=== PATIENT | female | born 1950 | race Native Hawaiian/Other Pacific Islander ===

== ENCOUNTER 2016-10-14 11:59 | Emergency (ER) | payer MEDICARE, OTHER | END 2016-10-14 16:17 | disposition home or self-care (01) | DX: K59.00 Constipation, unspecified (principal); I10 Essential (primary) hypertension ==

== ENCOUNTER 2016-11-06 10:04 | Emergency (ER) | payer MEDICARE, OTHER | END 2016-11-06 12:01 | disposition home or self-care (01) | DX: J06.9 Acute upper respiratory infection, unspecified (principal); I10 Essential (primary) hypertension; E78.00 Pure hypercholesterolemia, unspecified ==

== ENCOUNTER 2017-02-02 14:09 | Emergency (ER) | payer MEDICARE, OTHER ==
--- NOTE | 2017-02-02 14:28 | ED Physician Documentation ---
PD HPI FEMALE - Stated complaint Stated Complaint: FEMALE - Chief complaint Chief Complaint: UTI - History obtained from History obtained from: Patient - History of Present Illness Timing - onset: Last night Timing - details: Gradual onset, Still present, Waxing and waning Associated symptoms: Vaginal discharge (mild), Dysuria, Urinary frequency. No: Fever, Back pain, Pelvic pain, Vaginal pain, Vaginal bleeding, Genital sore/ lesion, Hematuria Contributing factors: No: Exposed to STD Similar symptoms before: Has not had sx before Recently seen: Not recently seen Review of Systems Constitutional: denies: Fever, Chills Throat: denies: Sore throat Respiratory: denies: Dyspnea, Cough GI: denies: Abdominal Pain, Nausea, Vomiting, Diarrhea : reports: Dysuria, Frequency, Discharge. denies: Hematuria, Vaginal bleeding Skin: denies: Rash, Lesions Musculoskeletal: denies: Back pain PD PAST MEDICAL HISTORY - Past Medical History Cardiovascular: Hypertension, High cholesterol Neuro: Headache/migraine - Past Surgical History Past Surgical History: Yes - Present Medications Home Medications: Ambulatory Orders Medication Instructions Recorded Confirmed Atenolol [Tenormin] 25 mg PO DAILY PRN 01/13/13 11/06/16 Simvastatin [Zocor] 10 mg PO QPM 01/13/13 11/06/16 Albuterol Sulfate [Proair Hfa 2 puffs IH QID #1 hfa.aer.ad 11/06/16 Inhaler] Amoxicillin 500 mg PO TID #20 capsule 11/06/16 Benzonatate [Tessalon] 100 mg PO TID PRN #25 capsule 11/06/16 Dexamethasone [Decadron] 4 mg PO DAILY #5 tablet 11/06/16 Prilosec Daily 11/06/16 Fluconazole [Diflucan] 150 mg PO ONCE #1 tablet 02/02/17 Metronidazole [Flagyl] 500 mg PO BID #14 tablet 02/02/17 - Allergies Allergies/Adverse Reactions: Allergies Allergy/AdvReac Type Severity Reaction Status Date / Time codeine [Codeine] Allergy Intermediate Hives Verified 02/02/17 14:17 - Social History Does the pt smoke?: No Smoking Status: Never smoker Does the pt drink ETOH?: No Does the pt have substance abuse?: No - Immunizations Immunizations are current?: Yes - POLST Patient has POLST: No PD ED PE NORMAL - Vitals Vital signs reviewed: Yes - General General: Alert and oriented X 3, No acute distress, Well developed/nourished - HEENT HEENT: Pharynx benign - Neck Neck: Supple, no meningeal sign, No adenopathy - Cardiac Cardiac: RRR, No murmur - Respiratory Respiratory: Clear bilaterally - Abdomen Abdomen: Normal bowel sounds, Soft, Non tender, Non distended - Female Female : 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 Seem like small cysts. Do not appear infected. The vaginal exam shows small amount of milky white discahrge. No Cervicitis and no CMT. ) - Rectal Rectal: Deferred - Back Back: No CVA TTP - Derm Derm: Normal color, Warm and dry, No rash Results - Vitals Vitals: Oxygen O2 Source Room air - Labs Labs: Microbiology 02/02/17 15:14 Wet Prep - Final Vaginal Laboratory Tests 02/02/17 14:21 Urine Color YELLOW Urine Clarity CLEAR Urine pH 5.5 Ur Specific [place] 1.015 Urine Protein NEGATIVE Urine Glucose (UA) NEGATIVE Urine Ketones NEGATIVE Urine Occult Blood NEGATIVE Urine Nitrite NEGATIVE Urine Bilirubin NEGATIVE Urine Urobilinogen 0.2 (NORMAL) Ur Leukocyte Esterase NEGATIVE Ur Microscopic Review NOT INDICATED Urine Culture Comments NOT INDICATED PD MEDICAL DECISION MAKING - ED course Complexity details: reviewed results, considered differential (dysuria and frequency, with slight vaginal discharge by complaint. UA appears normal. There is some vaginal discharge, though not that much and does not appear STD. Will treat as BV since the wet mount, though negative, has high false negatives. She has 2 small cystic bumps on labia that look benign. She would like referral to [facility]IRONMENT[facility] PROGRAMS [facility]NAGER. ), d/w patient Departure - Departure Disposition: Home, Self Care Clinical Impression: Vaginitis Qualifiers: Chronicity: acute Qualified Code(s): N76.0 - Acute vaginitis Condition: Stable Record reviewed to determine appropriate education?: Yes Instructions: ED Vaginosis Bacterial Follow-Up: Noah Peter MD [Provider Admit Priv/Credential] - Prescriptions: Fluconazole [Diflucan] 150 mg PO ONCE #1 tablet Metronidazole [Flagyl] 500 mg PO BID #14 tablet Comments: Your urine test is okay, so not looking like bladder infection. It does look like vaginal infection, which could be yeast so take Diflucan antifungal once and should treat that, but could be bacterial, so metronidazole twice daily for a week as directed. Recheck if not improved over the next few days. The vaginal culture will result in a few days and we will call if the antibiotics need to be changed. Follow up with Gynecology regarding the small labial bumps, but those do look benign, like small cysts. Discharge Date/Time: 02/02/17 16:06
[2017-02-02 14:39] LABS: BILIRUBIN,URINE NEGATIVE (NEGATIVE); PH,URINE 5.5 PH (5.0-7.5)
[2017-02-02 14:42] LABS: UA CHARGE (STRIP ONLY) YES; UR CULTURE IF IND NOT INDICATED
[2017-02-02 16:05] VITALS: BP 128/78
== END 2017-02-02 16:06 | disposition home or self-care (01) ==
LOC: ED 14:09
DX: N76.0 Acute vaginitis (principal); N90.7 Vulvar cyst; I10 Essential (primary) hypertension
CPT/HCPCS: 81001; 81003; 87086; 87210; 87491; 87591; 99283

== ENCOUNTER 2017-02-07 10:59 | Emergency (ER) | payer MEDICARE, OTHER ==
--- NOTE | 2017-02-07 12:08 | ED Physician Documentation ---
History of Present Illness - Stated complaint Stated Complaint: ABD PX/HEADACHE - Chief complaint Chief Complaint: Abd Pain - Additonal information Additional information: hx from pt 66 y/o f seen here recently and dx vaginitis possibly fungal txed with diflucan and possible bactrerial txed with flagyl has abd upset with falgyl so she has stopped that and is now feeling betterthough she still feels weak all over and has a mild LOBO Review of Systems Constitutional: denies: Fever Cardiac: denies: Chest pain / pressure Respiratory: denies: Dyspnea GI: denies: Abdominal Pain Neurologic: reports: Generalized weakness (mild), Headache (mild) Endocrine: denies: Easy bruising / bleeding Immunocompromised: denies: Immunocompromised PD PAST MEDICAL HISTORY - Past Medical History Cardiovascular: Hypertension, High cholesterol Neuro: Headache/migraine - Past Surgical History Past Surgical History: Yes - Present Medications Home Medications: Ambulatory Orders Medication Instructions Recorded Confirmed Atenolol [Tenormin] 25 mg PO DAILY PRN 01/13/13 11/06/16 Simvastatin [Zocor] 10 mg PO QPM 01/13/13 11/06/16 Albuterol Sulfate [Proair Hfa 2 puffs IH QID #1 hfa.aer.ad 11/06/16 Inhaler] Amoxicillin 500 mg PO TID #20 capsule 11/06/16 Benzonatate [Tessalon] 100 mg PO TID PRN #25 capsule 11/06/16 Dexamethasone [Decadron] 4 mg PO DAILY #5 tablet 11/06/16 Prilosec Daily 11/06/16 Fluconazole [Diflucan] 150 mg PO ONCE #1 tablet 02/02/17 Metronidazole [Flagyl] 500 mg PO BID #14 tablet 02/02/17 - Allergies Allergies/Adverse Reactions: Allergies Allergy/AdvReac Type Severity Reaction Status Date / Time codeine [Codeine] Allergy Intermediate Hives Verified 02/02/17 14:17 - Social History Does the pt smoke?: No Smoking Status: Never smoker Does the pt drink ETOH?: No Does the pt have substance abuse?: No - Immunizations Immunizations are current?: Yes - POLST Patient has POLST: No PD ED PE NORMAL - Vitals Vital signs reviewed: Yes - General General: Alert and oriented X 3 - HEENT HEENT: PERRL, Other (globes soft no TA TTP) - Neck Neck: Supple, no meningeal sign - Cardiac Cardiac: RRR - Respiratory Respiratory: No respiratory distress, Clear bilaterally - Abdomen Abdomen: Soft, Non tender - Neuro Neuro: Alert and oriented X 3, No motor deficit Results - Vitals Vitals: Vital Signs - 24 hr 02/07/17 11:07 Temperature 36.6 C Heart Rate 62 Respiratory 14 Rate Blood Pressure 121/71 O2 Saturation 99 Oxygen O2 Source Room air - Labs Labs: Laboratory Tests 02/07/17 02/07/17 12:00 12:00 POC Whole Bld Glucose 92 Urine Color YELLOW Urine Clarity CLEAR Urine pH 6.0 Ur Specific [place] 1.015 Urine Protein NEGATIVE Urine Glucose (UA) NEGATIVE Urine Ketones NEGATIVE Urine Occult Blood TRACE-INTA Urine Nitrite NEGATIVE Urine Bilirubin NEGATIVE Urine Urobilinogen 0.2 (NORMAL) Ur Leukocyte Esterase NEGATIVE Ur Microscopic Review NOT INDICATED Urine Culture Comments NOT INDICATED Departure - Departure Disposition: 01 Home, Self Care Clinical Impression: Adverse effects of medication Condition: Good Comments: Your vital signs, exam, blood sugar and urine test are all fine. The vaginal cultures from your first visit were negative, so you can stop the antibiotics all together You should start to feel better soon If not better by next week please follow up with your PMD Return to the ER sooner if worse
[2017-02-07 12:32] LABS: BILIRUBIN,URINE NEGATIVE (NEGATIVE)
[2017-02-07 12:33] LABS: UA CHARGE (STRIP ONLY) YES; UR CULTURE IF IND NOT INDICATED
[2017-02-07 12:53] VITALS: BP 124/67
== END 2017-02-07 12:53 | disposition home or self-care (01) ==
LOC: ED 10:59
DX: R10.9 Unspecified abdominal pain (principal); T37.3X5A Adverse effect of other antiprotozoal drugs, initial encounter; R51 Headache; R53.1 Weakness; I10 Essential (primary) hypertension
CPT/HCPCS: 81001; 81003; 87086; 99283

== ENCOUNTER 2017-04-22 21:57 | Emergency (ER) | payer MEDICARE, OTHER ==
[2017-04-22 22:11] VITALS: BP 140/87
--- NOTE | 2017-04-22 22:18 | ED Physician Documentation ---
PD HPI ABD PAIN - Stated complaint Stated Complaint: LT SIDE BURNING PX - Chief complaint Chief Complaint: Abd Pain - History obtained from History obtained from: Patient - History of Present Illness Timing - onset: Today (this morning) Timing - details: Gradual onset Pain level now: 9 Quality: Other (burning) Location: LLQ Radiation: Other (radiates from left flank to umbilicus) Improved by: Other (no ameliorating factors) Worsened by: Other (no exacerbating factors) Similar symptoms before: Has not had sx before - Additional information Additional information: c/o burning pain left abdomen to umbilicus. fell early this morning but does not recall specifically injuring her abdomen Review of Systems Cardiac: reports: Reviewed and negative Respiratory: reports: Reviewed and negative GI: reports: Abdominal Pain. denies: Nausea, Vomiting Skin: denies: Rash Musculoskeletal: denies: Back pain PD PAST MEDICAL HISTORY - Past Medical History Past Medical History: Yes Cardiovascular: Hypertension, High cholesterol Neuro: Headache/migraine - Past Surgical History Past Surgical History: Yes - Present Medications Home Medications: Ambulatory Orders Medication Instructions Recorded Confirmed Atenolol [Tenormin] 25 mg PO DAILY PRN 01/13/13 04/22/17 Simvastatin [Zocor] 10 mg PO QPM 01/13/13 04/22/17 - Allergies Allergies/Adverse Reactions: Allergies Allergy/AdvReac Type Severity Reaction Status Date / Time codeine [Codeine] Allergy Intermediate Hives Verified 04/22/17 22:11 - Social History Does the pt smoke?: No Smoking Status: Never smoker Does the pt drink ETOH?: No Does the pt have substance abuse?: No - Immunizations Immunizations are current?: Yes - POLST Patient has POLST: No PD ED PE NORMAL - Vitals Vital signs reviewed: Yes - General General: Alert and oriented X 3, No acute distress, Well developed/nourished - Cardiac Cardiac: RRR, No murmur - Respiratory Respiratory: No respiratory distress, Clear bilaterally - Abdomen Abdomen: Normal bowel sounds, Soft, Non tender, Non distended - Derm Derm: Normal color, Warm and dry, No rash Results - Vitals Vitals: Vital Signs - 24 hr 04/22/17 22:08 Temperature 36.4 C L Heart Rate 70 Respiratory 16 Rate Blood Pressure 140/87 H O2 Saturation 98 Oxygen O2 Source Room air PD MEDICAL DECISION MAKING - ED course Complexity details: considered differential, d/w patient ED course: Patient's abdominal exam is benign/unremarkable. There is no abdominal tenderness to deep palpation in any quadrant or periumbilicus. No UTI symptoms. Exam does not suggest an acute/emergent process that would indicate/benefit from emergent testing (such as traumatic injury, diverticulitis, UTI). Possibility of shingles discussed, and I encouraged patient to return or see PMD if she develops a rash in the area of discomfort, and to return to ED if worse in any way. Departure - Departure Disposition: 01 Home, Self Care Clinical Impression: Paresthesia of skin Condition: Good Instructions: ED Paraesthesias Discharge Date/Time: 04/22/17 22:57
[2017-04-22] MEDS ORDERED: LIDOCAINE PATCH 5% TOP STA (22:42)
[2017-04-22] MEDS ORDERED: LIDOCAINE PATCH 5% TOP ONE (22:50)
== END 2017-04-22 22:57 | disposition home or self-care (01) ==
LOC: ED 21:57
DX: R20.9 Unspecified disturbances of skin sensation (principal); I10 Essential (primary) hypertension; E78.00 Pure hypercholesterolemia, unspecified
CPT/HCPCS: 99283; A9270

== ENCOUNTER 2017-06-02 13:39 | Emergency (ER) | payer MEDICARE, OTHER ==
[2017-06-02 14:01] VITALS: BP 109/76
--- NOTE | 2017-06-02 15:12 | ED Physician Documentation ---
PD HPI BACK INJURY - Stated complaint Stated Complaint: NECK IRRITATION PD PAST MEDICAL HISTORY - Past Medical History Cardiovascular: Hypertension, High cholesterol Neuro: Headache/migraine - Past Surgical History Past Surgical History: Yes - Present Medications Home Medications: Ambulatory Orders Medication Instructions Recorded Confirmed Atenolol [Tenormin] 25 mg PO DAILY PRN 01/13/13 06/02/17 Simvastatin [Zocor] 10 mg PO QPM 01/13/13 06/02/17 - Allergies Allergies/Adverse Reactions: Allergies Allergy/AdvReac Type Severity Reaction Status Date / Time codeine [Codeine] Allergy Intermediate Hives Verified 06/02/17 14:28 - Social History Does the pt smoke?: No Smoking Status: Never smoker Does the pt drink ETOH?: No Does the pt have substance abuse?: No - Immunizations Immunizations are current?: Yes - POLST Patient has POLST: No Results - Vitals Vitals: Vital Signs - 24 hr 06/02/17 13:55 Temperature 36.7 C Heart Rate 57 L Respiratory 15 Rate Blood Pressure 109/76 O2 Saturation 99 Oxygen O2 Source Room air
--- NOTE | 2017-06-02 15:12 | ED Physician Documentation ---
PD HPI SKIN - Stated complaint Stated Complaint: NECK IRRITATION - Chief complaint Chief Complaint: Wound - History obtained from History obtained from: Patient - History of Present Illness Timing - onset: How many days ago (few) Timing - duration: Days (few) Timing - details: Abrupt onset Location: Neck (noted it when put lotion on her neck.) Quality / character: Burning. No: Crusted, Draining Associated symptoms: No: Fever, Myalgias Contributing factors: Other (no new jewelry, lotions, meds.). No: Insect bite / sting, Recent illness Similar symptoms before: Has not had sx before Recently seen: Not recently seen Review of Systems Constitutional: denies: Fever, Chills Nose: denies: Rhinorrhea / runny nose, Congestion Throat: denies: Sore throat Respiratory: denies: Cough PD PAST MEDICAL HISTORY - Past Medical History Cardiovascular: Hypertension, High cholesterol Neuro: Headache/migraine - Past Surgical History Past Surgical History: Yes - Present Medications Home Medications: Ambulatory Orders Medication Instructions Recorded Confirmed Atenolol [Tenormin] 25 mg PO DAILY PRN 01/13/13 06/02/17 Simvastatin [Zocor] 10 mg PO QPM 01/13/13 06/02/17 Clotrimazole/Betamethasone Dip 1 applic TP TID #15 cream..g. 06/02/17 [Lotrisone Cream] Mupirocin 1 applic TP TID #15 oint...g. 06/02/17 - Allergies Allergies/Adverse Reactions: Allergies Allergy/AdvReac Type Severity Reaction Status Date / Time codeine [Codeine] Allergy Intermediate Hives Verified 06/02/17 14:28 - Social History Does the pt smoke?: No Smoking Status: Never smoker Does the pt drink ETOH?: No Does the pt have substance abuse?: No - Immunizations Immunizations are current?: Yes - POLST Patient has POLST: No PD ED PE NORMAL - Vitals Vital signs reviewed: Yes - General General: Alert and oriented X 3, No acute distress, Well developed/nourished - Neck Neck: Supple, no meningeal sign, No adenopathy - Derm Derm: Normal color, Warm and dry, Other (right anterior neck with rounded patch of scaly raised skin with demarcated edge about 1 - 1 1/2 cm size. No redness around. Upper portion of it with faint yellow crusting but not purulent. No erosiveness noted. No induration under it. ) Results - Vitals Vitals: Oxygen O2 Source Room air PD MEDICAL DECISION MAKING - ED course Complexity details: considered differential (small rounded patch with hyperkeratosis, but also slight yellow crusting. No erosiveness. Looks like maybe tinea patch but then possible infection to it as well. ), d/w patient Departure - Departure Disposition: 01 Home, Self Care Clinical Impression: Rash of neck Condition: Stable Record reviewed to determine appropriate education?: Yes Follow-Up: [facility] [Provider Group] Prescriptions: Clotrimazole/Betamethasone Dip [Lotrisone Cream] 1 applic TP TID #15 cream..g. Mupirocin 1 applic TP TID #15 oint...g. Comments: There are several things that can look like this with the thickening of the skin and some crusting. The does appear like some infection to it and so use the mupirocin antibiotic ointment 3 times daily after cleaning with soap and water. However also apply Lotrisone cream to the area 2-3 times a day first which includes an antifungal and an anti-inflammatory. This covers the basic infection and irritation type causes. If it has not gotten better whether 5-6 days, then follow-up with your primary care or dermatology for other treatment options. Discharge Date/Time: 06/02/17 16:00
== END 2017-06-02 16:00 | disposition home or self-care (01) ==
LOC: ED 13:39
DX: R21 Rash and other nonspecific skin eruption (principal); I10 Essential (primary) hypertension; E78.00 Pure hypercholesterolemia, unspecified
CPT/HCPCS: 99282; 99283

== ENCOUNTER 2017-10-22 11:51 | Emergency (ER) | payer MEDICARE, OTHER ==
[2017-10-22 12:16] LABS: BILIRUBIN,URINE NEGATIVE (NEGATIVE); GLUCOSE, URINE (UA) NEGATIVE (NEGATIVE); KETONES,URINE (UA) NEGATIVE (NEGATIVE); LEUKOCYTE ESTERASE, URINE NEGATIVE (NEGATIVE); NITRITE,URINE NEGATIVE (NEGATIVE); OCCULT BLOOD,URINE NEGATIVE (NEGATIVE); PROTEIN,URINE NEGATIVE (NEGATIVE); UROBILINOGEN,URINE 0.2 (NORMAL) E.U./dL (NORMAL)
[2017-10-22 12:18] LABS: CLARITY,URINE CLEAR (CLEAR)
[2017-10-22 12:27] LABS: BASOPHILS # (AUTO) 0.1 10^3/uL (0.0-0.1); BASOPHILS % (AUTO) 2.1 %; EOSINOPHILS # (AUTO) 0.1 10^3/uL (0.0-0.7); HGB - HEMOGLOBIN 13.4 g/dL (12.0-16.0); LYMPHOCYTES # (AUTO) 1.9 10^3/uL (1.5-3.5); LYMPHOCYTES % (AUTO) 40.6 %; MEAN CORPUSCULAR HEMOGLOBIN 28.6 pg (27.0-31.0); MEAN CORPUSCULAR HGB CONC 33.1 g/dL (32.0-36.0); MEAN CORPUSCULAR VOLUME 86.3 fL (81.0-99.0); MEAN PLATELET VOLUME 7.5 fL (7.9-10.8); MONOCYTES # (AUTO) 0.4 10^3/uL (0.0-1.0); MONOCYTES % (AUTO) 9.4 %; NEUTROPHILS # (AUTO) 2.1 10^3/uL (1.5-6.6); NEUTROPHILS % (AUTO) 44.9 %; PLT - PLATELET COUNT 318 10^3/uL (130-450); RED CELL DISTRIBUTION WIDTH 13.6 % (12.0-15.0); WHITE BLOOD COUNT 4.7 x10^3/uL (4.8-10.8)
[2017-10-22 13:02] LABS: ALBUMIN 4.2 g/dL (3.2-5.5); ALBUMIN/GLOBULIN RATIO 1.2 (1.0-2.2); BILIRUBIN,TOTAL 0.8 mg/dL (0.2-1.0); CALCIUM 9.5 mg/dL (8.5-10.3); CREATININE 0.8 mg/dL (0.4-1.0); TOTAL PROTEIN 7.7 g/dL (6.7-8.2)
--- NOTE | 2017-10-22 14:36 | ED Physician Documentation ---
History of Present Illness - Stated complaint Stated Complaint: CONSTIPATION X 3 DAYS - Chief complaint Chief Complaint: Abd Pain - Additonal information Additional information: hx from pt 67 female no prior abd surgeries 4 days of illness - no fever, nausea, poor appetite, right sided abd pain and now no BM denies dysuria Review of Systems Constitutional: denies: Fever, Chills Cardiac: denies: Chest pain / pressure Respiratory: denies: Dyspnea GI: reports: Abdominal Pain, Nausea, Constipation (no BM) : denies: Dysuria Musculoskeletal: denies: Neck pain, Back pain Endocrine: denies: Easy bruising / bleeding Immunocompromised: denies: Immunocompromised PD PAST MEDICAL HISTORY - Past Medical History Cardiovascular: Hypertension, High cholesterol Neuro: Headache/migraine - Past Surgical History Past Surgical History: Yes - Present Medications Home Medications: Ambulatory Orders Medication Instructions Recorded Confirmed Atenolol [Tenormin] 12.5 mg PO DAILY PRN 01/13/13 07/05/17 Simvastatin [Zocor] 20 mg PO QPM 01/13/13 07/05/17 Magnesium Citrate 295 ml PO ONCE #1 bottle 10/22/17 - Allergies Allergies/Adverse Reactions: Allergies Allergy/AdvReac Type Severity Reaction Status Date / Time codeine [Codeine] Allergy Intermediate Hives Verified 10/22/17 11:56 - Social History Does the pt smoke?: No Smoking Status: Never smoker Does the pt drink ETOH?: No Does the pt have substance abuse?: No - Immunizations Immunizations are current?: Yes - POLST Patient has POLST: No PD ED PE NORMAL - Vitals Vital signs reviewed: Yes - General General: Alert and oriented X 3 - HEENT HEENT: PERRL - Neck Neck: Supple, no meningeal sign - Cardiac Cardiac: RRR - Respiratory Respiratory: No respiratory distress, Clear bilaterally - Abdomen Abdomen: Soft, Other (TTP right abd non focal no peritineal sx) - Rectal Rectal: Other (no mass, no stool in valult, small brown mucous was occult blood neg QC passed) - Derm Derm: Normal color - Neuro Neuro: Alert and oriented X 3 Results - Vitals Vitals: Vital Signs - 24 hr 10/22/17 11:54 Temperature 36.3 C L Heart Rate 64 Respiratory 16 Rate Blood Pressure 127/93 H O2 Saturation 98 Oxygen O2 Source Room air - Labs Labs: Laboratory Tests 10/22/17 10/22/17 10/22/17 12:05 12:13 12:13 WBC 4.7 L RBC 4.70 Hgb 13.4 Hct 40.5 MCV 86.3 MCH 28.6 MCHC 33.1 RDW 13.6 Plt Count 318 MPV 7.5 L Neut # 2.1 Lymph # 1.9 [place] # 0.4 Eos # 0.1 Baso # 0.1 Absolute Nucleated RBC 0.00 Nucleated RBC % 0.1 Sodium 138 Potassium 3.7 Chloride 104 Carbon Dioxide 26 Anion Gap 8.0 BUN 14 Creatinine 0.8 Estimated GFR (MDRD) 71 L Glucose 99 Calcium 9.5 Total Bilirubin 0.8 AST 33 ALT 32 Alkaline Phosphatase 64 Total Protein 7.7 Albumin 4.2 Globulin 3.5 Albumin/Globulin Ratio 1.2 Lipase 48 Urine Color YELLOW Urine Clarity CLEAR Urine pH 6.0 Ur Specific [place] 1.020 Urine Protein NEGATIVE Urine Glucose (UA) NEGATIVE Urine Ketones NEGATIVE Urine Occult Blood NEGATIVE Urine Nitrite NEGATIVE Urine Bilirubin NEGATIVE Urine Urobilinogen 0.2 (NORMAL) Ur Leukocyte Esterase NEGATIVE Ur Microscopic Review NOT INDICATED Urine Culture Comments NOT INDICATED - Rads (name of study) CT AP Radiology: See rad report (no acute) Departure - Departure Disposition: Home, Self Care Clinical Impression: Abdominal pain Qualifiers: Abdominal location: unspecified location Qualified Code(s): R10.9 - Unspecified abdominal pain Condition: Good Instructions: ED Abdominal Pain Unkn Cause Prescriptions: Magnesium Citrate 295 ml PO ONCE #1 bottle Comments: Your labs, urine and CT scan were all fine. I am not sure what is causing the discomfort, but it does not seem you need surgery or antibiotics or admission to the hospital I think it is OK for you to go home I have prescribe mag citrate to help clear out your bowels - drink half the bottle when you get home and the other half in 12 hr If you get worse in any way, please see your PMD or come back to the ER - sometimes abdominal problems can be difficult to figure out at first but as symptoms progress over time repeat testing shows a diagnosis not initially apparent
--- NOTE | 2017-10-22 15:11 | CT Report ---
EXAM: CT ABDOMEN AND PELVIS EXAM DATE: 10/22/2017 02:51 PM. CLINICAL HISTORY: Right lower abdominal pain. COMPARISONS: 10/14/2016. TECHNIQUE: Routine helical CT imaging was performed through the abdomen and pelvis. IV contrast: No. Enteric contrast: No. Reconstructions: Coronal and sagittal. In accordance with CT protocol optimization, one or more of the following dose reduction techniques w ere utilized for this exam: automated exposure control, adjustment of mA and/or KV based on patient s ize, or use of iterative reconstructive technique. FINDINGS: Lung Bases: Mild linear atelectasis or scarring in the anterior basal left lower lobe and lateral bas al right lower lobe. Liver: Unremarkable. Gallbladder/Bile Ducts: Unremarkable. Spleen: Unremarkable. Pancreas: Unremarkable. Adrenal Glands: Normal. Kidneys: Unremarkable. No hydronephrosis or urolithiasis. Peritoneal Cavity/Bowel: Unopacified stomach and small bowel are nondistended. Appendix is normal. Th ere is a small amount of formed stool in the colon. There is no pericolonic fat stranding. No lymphad enopathy, ascites, or pneumoperitoneum. Pelvic Organs: Bladder, uterus, and adnexa are unremarkable. Vasculature: Mild aortoiliac atherosclerotic calcification without abnormal dilation. Bones: Chronic mild anterior superior wedge compression deformity of L1 vertebral body, as before. Other: Abdominal wall is unremarkable. IMPRESSION: Negative noncontrast CT abdomen and pelvis without findings to explain right-sided pain. [facility] Referring Provider Line: [phone] SITE ID: [id number]
[2017-10-22 15:27] VITALS: BP 107/70
== END 2017-10-22 15:33 | disposition home or self-care (01) ==
LOC: ED 11:51
DX: R10.30 Lower abdominal pain, unspecified (principal); I10 Essential (primary) hypertension; E78.00 Pure hypercholesterolemia, unspecified
CPT/HCPCS: 36415; 74176; 80053; 81001; 81003; 83690; 85025; 87086; 99283

== ENCOUNTER 2018-02-09 23:36 | Emergency (ER) | payer MEDICARE, OTHER ==
[2018-02-09 23:48] VITALS: BP 128/91
--- NOTE | 2018-02-10 03:15 | ED Physician Documentation ---
PD HPI OPHTHO - Stated complaint Stated Complaint: RHIANNA EYE REDNESS - Chief complaint Chief Complaint: Heent - History obtained from History obtained from: Patient - History of Present Illness Timing - onset: How many weeks ago (2) Timing - duration: Weeks Timing - details: Gradual onset Location: Both Quality / character: Itching Associated symptoms: Redness, Swelling Similar symptoms before: Has not had sx before Recently seen: Other (patient says she recently saw her eye doctor (per patient), and was told her eyes are fine (perpstient) but that the doctor had no advice regarding the symptoms and rash surrounding the eyes because they felt it wasnt within their specialty) - Additional information Additional information: c/o two weeks of bilateral periorbital (mostly supraorbital) redness with pruritis and mild swelling. no injury, denies pain, has not used any new makeup nor applied new lotions or other products to the area (except for artificial tears applied yesterday, but symptoms have been going on for two weeks) Review of Systems Constitutional: denies: Fever Eyes: denies: Decreased vision, Discharge, Irritation Skin: reports: Rash (bilateral periorbital) PD PAST MEDICAL HISTORY - Past Medical History Cardiovascular: Hypertension, High cholesterol - Past Surgical History Past Surgical History: Yes - Present Medications Home Medications: Ambulatory Orders Medication Instructions Recorded Confirmed Atenolol [Tenormin] 12.5 mg PO DAILY PRN 01/13/13 07/05/17 Simvastatin [Zocor] 20 mg PO QPM 01/13/13 07/05/17 Magnesium Citrate 295 ml PO ONCE #1 bottle 10/22/17 Desonide 1 film TP BID #1 cream..g. 02/10/18 - Allergies Allergies/Adverse Reactions: Allergies Allergy/AdvReac Type Severity Reaction Status Date / Time codeine [Codeine] Allergy Intermediate Hives Verified 02/09/18 23:48 diphenhydramine Allergy Respiratory Verified 02/09/18 23:48 [From Benadryl] - Social History Does the pt smoke?: No Smoking Status: Never smoker Does the pt drink ETOH?: No Does the pt have substance abuse?: No - Immunizations Immunizations are current?: Yes - POLST Patient has POLST: No PD ED PE NORMAL - Vitals Vital signs reviewed: Yes - General General: Alert and oriented X 3, No acute distress, Well developed/nourished - HEENT HEENT: PERRL, EOMI PD ED PE EXPANDED - Eyes Eyes: Eyelid swelling, Eyelid erythema, Nl conjunctiva/sclera - Derm Derm: Rash (scaly erythematous rash with areas of flaking and mild swelling, predominantly on bilateral supraorbits, particularly on eyelids, with extension to lateral sides of nasal bridge and bilateral medial eyebrows, and trace on lower lids and infraorbits) Results - Vitals Vitals: Oxygen O2 Source Room air PD MEDICAL DECISION MAKING - ED course Complexity details: considered differential, d/w patient - Sepsis Event Vital Signs: Oxygen O2 Source Room air Departure - Departure Disposition: 01 Home, Self Care Clinical Impression: Dermatitis Condition: Good Instructions: ED Dermatitis Non Specific Rash Prescriptions: Desonide 1 film TP BID #1 cream..g. Comments: Follow up with your primary care provider; call today to arrange for next available appointment. Apply a thin film of the prescribed cream to the affected area twice per day for one week. Discharge Date/Time: 02/10/18 04:58
[2018-02-10] MEDS ORDERED: predniSONE 20 MG TABLET PO STA (04:41)
== END 2018-02-10 04:58 | disposition home or self-care (01) ==
LOC: ED 23:36
DX: L30.9 Dermatitis, unspecified (principal); I10 Essential (primary) hypertension; E78.00 Pure hypercholesterolemia, unspecified
CPT/HCPCS: 99283; J7512

== ENCOUNTER 2018-10-04 21:03 | Emergency (ER) | payer MEDICARE, OTHER ==
[2018-10-04] MEDS ORDERED: IBUPROFEN 800 MG TABLET PO STA (21:31)
--- NOTE | 2018-10-04 21:34 | ED Physician Documentation ---
PD HPI URI - Stated complaint Stated Complaint: COUGH - Chief complaint Chief Complaint: Resp - History obtained from History obtained from: Patient - History of Present Illness Timing - onset: How many days ago (6) Timing details: Still present Associated symptoms: Sore throat, Productive cough - Additional information Additional information: The patient is a 68-year-old female who resents with cough of 6 days duration. Cough is productive of sputum. She reports chest discomfort with coughing. She denies dyspnea. She complains of generalized myalgias, slight headache, and sore throat. She denies fever, abdominal pain, nausea or vomiting. Review of Systems Constitutional: reports: Myalgias. denies: Fever Eyes: denies: Irritation Ears: denies: Ear pain Nose: reports: Congestion Throat: reports: Sore throat Cardiac: reports: Chest pain / pressure (with coughing) Respiratory: reports: Cough. denies: Dyspnea GI: denies: Abdominal Pain, Nausea, Vomiting : denies: Dysuria Skin: denies: Rash Musculoskeletal: denies: Extremity swelling Neurologic: reports: Headache (slight). denies: Focal weakness, Numbness PD PAST MEDICAL HISTORY - Past Medical History Past Medical History: Yes Cardiovascular: Hypertension, High cholesterol Endocrine/Autoimmune: None - Past Surgical History Past Surgical History: Yes - Present Medications Home Medications: Ambulatory Orders Medication Instructions Recorded Confirmed Atenolol [Tenormin] 12.5 mg PO DAILY PRN 01/13/13 07/05/17 Simvastatin [Zocor] 20 mg PO QPM 01/13/13 07/05/17 Benzonatate [Tessalon Perle] 100 - 200 mg PO TID PRN #30 capsule 10/04/18 - Allergies Allergies/Adverse Reactions: Allergies Allergy/AdvReac Type Severity Reaction Status Date / Time codeine [Codeine] Allergy Intermediate Hives Verified 10/04/18 21:16 diphenhydramine Allergy Respiratory Verified 10/04/18 21:16 [From Benadryl] - Social History Does the pt smoke?: No Smoking Status: Never smoker Does the pt drink ETOH?: No Does the pt have substance abuse?: No - Immunizations Immunizations are current?: Yes - POLST Patient has POLST: No PD ED PE NORMAL - Vitals Vital signs reviewed: Yes (normal) - General General: Alert and oriented X 3, Well developed/nourished - HEENT HEENT: Atraumatic, Ears normal, Pharynx benign - Neck Neck: Supple, no meningeal sign, No adenopathy, No JVD - Cardiac Cardiac: RRR, No murmur - Respiratory Respiratory: Clear bilaterally - Abdomen Abdomen: Soft, Non tender - Back Back: No CVA TTP - Derm Derm: No rash - Extremities Extremities: No edema, No calf tenderness / cord - Neuro Neuro: Alert and oriented X 3, No motor deficit, Normal speech Results - Vitals Vitals: Vital Signs - 24 hr 10/04/18 10/04/18 21:11 22:08 Temperature 36.7 C 36.3 C L Heart Rate 65 67 Respiratory 15 20 Rate Blood Pressure 129/79 140/95 H O2 Saturation 98 97 Oxygen O2 Source Room air - Labs Labs: Laboratory Tests 10/04/18 21:44 Influenza A (Rapid) Negative Influenza B (Rapid) Negative PD MEDICAL DECISION MAKING - ED course Complexity details: reviewed results, re-evaluated patient, considered differential, d/w patient ED course: The patient's presentation is most consistent with viral upper respiratory infection. Her clinical presentation does not suggest meningitis, pneumonitis, otitis media, or acute pharyngitis. Influenza swab is negative. Treatment in the emergency department included Ibuprophen 800 mg orally. I discussed with her the expected course of illness, symptomatic treatment and outpatient follow-up, as well as potentially worrisome signs or symptoms that should prompt reevaluation in the emergency department. Departure - Departure Disposition: 01 Home, Self Care Clinical Impression: Viral upper respiratory infection Condition: Stable Instructions: ED Upper Resp Infec No Abx Tx Follow-Up: Kaylin Nicolas MD [Physician No Access] - Prescriptions: Benzonatate [Tessalon Perle] 100 - 200 mg PO TID PRN #30 capsule PRN Reason: Cough Comments: Your symptoms are most consistent with a viral upper respiratory infection. Antibiotics are not clinically indicated for this type of viral infection. Treatment should be geared toward managing symptoms: Drink plenty of fluids. Use Tylenol or ibuprofen as needed for fever or discomfort. Wash your hands frequently, and cover your cough. Follow up with your primary physician, or return to the emergency department, if not improving within 1-2 weeks. Return to the emergency department if you develop increasing difficulty breathing, or otherwise worsening symptoms. Discharge Date/Time: 10/04/18 22:11
[2018-10-04] MEDS ORDERED: BENZONATATE 100 MG CAPSULE PO STA (22:05)
[2018-10-04 22:08] VITALS: BP 140/95
== END 2018-10-04 22:11 | disposition home or self-care (01) ==
LOC: ED 21:03
DX: J06.9 Acute upper respiratory infection, unspecified (principal); B34.9 Viral infection, unspecified; I10 Essential (primary) hypertension
CPT/HCPCS: 87275; 87276; 99283; A9270

== ENCOUNTER 2018-10-27 13:27 | Emergency (ER) | payer MEDICARE, OTHER ==
[2018-10-27 13:35] VITALS: BP 117/76
--- NOTE | 2018-10-27 14:21 | ED Physician Documentation ---
PD HPI SKIN - Stated complaint Stated Complaint: RASH - Chief complaint Chief Complaint: Wound - History obtained from History obtained from: Patient - History of Present Illness Timing - onset: Yesterday Timing - details: Abrupt onset (she got her hair dyed yesterday and started with itchy, bumpy rash on back of neck sooner after in the evening. Not present on frontal hairline. No general rash.), Still present Location: Neck. No: Scalp, Face Quality / character: Itchy, Burning Associated symptoms: No: Fever, Myalgias Contributing factors: Other (had hair dyed yesterday and rash started soon after) Recently seen: Not recently seen Review of Systems Constitutional: denies: Fever, Chills Nose: denies: Rhinorrhea / runny nose, Congestion Throat: denies: Sore throat Respiratory: denies: Dyspnea, Cough, Wheezing GI: denies: Nausea, Vomiting, Diarrhea PD PAST MEDICAL HISTORY - Past Medical History Past Medical History: Yes Cardiovascular: Hypertension, High cholesterol Endocrine/Autoimmune: None - Past Surgical History Past Surgical History: Yes - Present Medications Home Medications: Ambulatory Orders Medication Instructions Recorded Confirmed Atenolol [Tenormin] 12.5 mg PO DAILY PRN 01/13/13 07/05/17 Simvastatin [Zocor] 20 mg PO QPM 01/13/13 07/05/17 Betamethasone Valerate 1 applic TP TID PRN #15 cream..g. 10/27/18 Dexamethasone [Decadron] 4 mg PO DAILY #5 tablet 10/27/18 - Allergies Allergies/Adverse Reactions: Allergies Allergy/AdvReac Type Severity Reaction Status Date / Time codeine [Codeine] Allergy Intermediate Hives Verified 10/27/18 14:22 diphenhydramine Allergy Respiratory Verified 10/27/18 14:22 [From Benadryl] - Social History Does the pt smoke?: No Smoking Status: Never smoker Does the pt drink ETOH?: No Does the pt have substance abuse?: No - Immunizations Immunizations are current?: Yes - POLST Patient has POLST: No PD ED PE NORMAL - Vitals Vital signs reviewed: Yes - General General: Alert and oriented X 3, No acute distress, Well developed/nourished - HEENT HEENT: Ears normal, Pharynx benign - Neck Neck: Supple, no meningeal sign, No adenopathy, Other (back of neck with multiple bumpy lesions that are not pustules nor vesicles. Is on both sides and is just on upper neck around hair edge. No rash on face, around ears nor in main scalp. ) - Cardiac Cardiac: RRR, No murmur - Respiratory Respiratory: Clear bilaterally - Derm Derm: Normal color, Warm and dry Results - Vitals Vitals: Oxygen O2 Source Room air PD MEDICAL DECISION MAKING - ED course Complexity details: considered differential (bumpy rash that is itchy. Presume contact dermatitis. Does not look like pustules and is not in herpetic distribution (such as shingles). ), d/w patient Departure - Departure Disposition: 01 Home, Self Care Clinical Impression: Rash of neck, Dermatitis Condition: Stable Record reviewed to determine appropriate education?: Yes Instructions: ED Dermatitis Contact Follow-Up: Kaylin Nicolas MD [Primary Care Provider] - Prescriptions: Betamethasone Valerate 1 applic TP TID PRN #15 cream..g. PRN Reason: Itching Dexamethasone [Decadron] 4 mg PO DAILY #5 tablet Comments: We will treat this as irritated skin at this point. It does not look like per se it does not look like shingles at this time. Use the Decadron steroid orally for the next several days and betamethasone topically. Recheck if not improved over the next few days. Discharge Date/Time: 10/27/18 15:00
[2018-10-27] MEDS ORDERED: DEXAMETHASONE 10 MG/ML VIAL PO STA (14:45)
[2018-10-27] MEDS ORDERED: CETIRIZINE 10 MG TABLET PO STA (14:45)
== END 2018-10-27 15:00 | disposition home or self-care (01) ==
LOC: ED 13:27
DX: R21 Rash and other nonspecific skin eruption (principal); L30.9 Dermatitis, unspecified; I10 Essential (primary) hypertension; E78.00 Pure hypercholesterolemia, unspecified
CPT/HCPCS: 99281; 99283

== ENCOUNTER 2019-05-18 23:17 | Emergency (ER) | payer MEDICARE, OTHER ==
--- NOTE | 2019-05-19 00:01 | ED Physician Documentation ---
History of Present Illness - Stated complaint Stated Complaint: BACK PX, NECH PX, DIZZY, GLF - Chief complaint Chief Complaint: Abd Pain - History obtained from History obtained from: Patient - History of Present Illness Timing: Today (early this morning) Pain level now: 4 Improved by: rest Worsened by: movement involving lower back - Additonal information Additional information: fell out of bed this morning; she usually uses steps, as it is a high bed. She c/o gradually worsening lower back pain since falling. The pain has also increasingly been radiating around to BLQ of abdomen, mostly LLQ, with sensation of lower abdominal "fullness". Review of Systems Cardiac: reports: Reviewed and negative Respiratory: reports: Reviewed and negative GI: reports: Abdominal Pain. denies: Nausea, Vomiting, Constipation, Diarrhea : denies: Dysuria, Frequency Skin: reports: Reviewed and negative Musculoskeletal: reports: Back pain. denies: Neck pain Neurologic: denies: Generalized weakness, Focal weakness, Numbness, Headache, Head injury, LOC PD PAST MEDICAL HISTORY - Past Medical History Cardiovascular: Hypertension, High cholesterol Endocrine/Autoimmune: None - Past Surgical History Past Surgical History: Yes - Present Medications Home Medications: Ambulatory Orders Medication Instructions Recorded Confirmed Atenolol [Tenormin] 12.5 mg PO DAILY PRN 01/13/13 07/05/17 Simvastatin [Zocor] 20 mg PO QPM 01/13/13 07/05/17 Betamethasone Valerate 1 applic TP TID PRN #15 cream..g. 10/27/18 dexAMETHasone [Decadron] 4 mg PO DAILY #5 tablet 10/27/18 - Allergies Allergies/Adverse Reactions: Allergies Allergy/AdvReac Type Severity Reaction Status Date / Time codeine [Codeine] Allergy Intermediate Hives Verified 05/18/19 23:21 diphenhydramine Allergy Respiratory Verified 05/18/19 23:21 [From Benadryl] - Social History Does the pt smoke?: No Smoking Status: Never smoker Does the pt drink ETOH?: No Does the pt have substance abuse?: No - Immunizations Immunizations are current?: Yes - POLST Patient has POLST: No PD ED PE NORMAL - Vitals Vital signs reviewed: Yes - General General: Alert and oriented X 3, No acute distress, Well developed/nourished - Cardiac Cardiac: RRR, No murmur - Respiratory Respiratory: No respiratory distress, Clear bilaterally - Abdomen Abdomen: Soft, Non distended, Other (LLQ tenderness to palpation without guarding or rebound) - Back Back: No CVA TTP, No spinal TTP - Derm Derm: Normal color, Warm and dry, No rash - Extremities Extremities: No edema - Neuro Neuro: Alert and oriented X 3, external relations director 2-12 intact, No motor deficit, No sensory deficit, Normal speech Eye Opening: Spontaneous Motor: Obeys Commands Verbal: Oriented GCS Score: 15 Results - Vitals Vitals: Oxygen O2 Source Room air - Labs Labs: Laboratory Tests 05/19/19 05/19/19 05/19/19 00:40 00:40 02:10 WBC 5.6 RBC 4.76 Hgb 13.3 Hct 42.3 MCV 88.9 MCH 27.9 MCHC 31.4 L RDW 13.5 Plt Count 299 MPV 9.6 Neut # (Auto) 3.0 Lymph # (Auto) 1.7 [place] # (Auto) 0.7 Eos # (Auto) 0.2 Baso # (Auto) 0.1 Absolute Nucleated RBC 0.00 Nucleated RBC % 0.0 Sodium 138 Potassium 3.5 Chloride 102 Carbon Dioxide 28 Anion Gap 8.0 BUN 18 Creatinine 1.0 Estimated GFR (MDRD) 55 L Glucose 117 H Calcium 9.7 Urine Color YELLOW Urine Clarity CLEAR Urine pH 6.0 Ur Specific [place] <=1.005 Urine Protein NEGATIVE Urine Glucose (UA) 100 H Urine Ketones NEGATIVE Urine Occult Blood NEGATIVE Urine Nitrite NEGATIVE Urine Bilirubin NEGATIVE Urine Urobilinogen 0.2 (NORMAL) Ur Leukocyte Esterase NEGATIVE Ur Microscopic Review NOT INDICATED Urine Culture Comments NOT INDICATED - Rads (name of study) CT A/P Radiology: Prelim report reviewed, See rad report PD MEDICAL DECISION MAKING - ED course Complexity details: reviewed results, re-evaluated patient, considered differential, d/w patient ED course: Reassuring test results. Declines analgesia in ED and as rx. Departure - Departure Disposition: 01 Home, Self Care Clinical Impression: Low back pain Qualifiers: Chronicity: acute Back pain laterality: midline Sciatica presence: without sciatica Qualified Code(s): M54.5 - Low back pain Condition: Good Instructions: ED Low Back Pain Injury Discharge Date/Time: 05/19/19 04:39
[2019-05-19 00:50] LABS: BASOPHILS # (AUTO) 0.1 10^3/uL (0.0-0.1); BASOPHILS % (AUTO) 0.9 %; EOSINOPHILS # (AUTO) 0.2 10^3/uL (0.0-0.7); HGB - HEMOGLOBIN 13.3 g/dL (12.0-16.0); LYMPHOCYTES # (AUTO) 1.7 10^3/uL (1.5-3.5); LYMPHOCYTES % (AUTO) 30.1 %; MEAN CORPUSCULAR HEMOGLOBIN 27.9 pg (27.0-31.0); MEAN CORPUSCULAR HGB CONC 31.4 g/dL (32.0-36.0); MEAN CORPUSCULAR VOLUME 88.9 fL (81.0-99.0); MEAN PLATELET VOLUME 9.6 fL (7.9-10.8); MONOCYTES # (AUTO) 0.7 10^3/uL (0.0-1.0); MONOCYTES % (AUTO) 11.9 %; NEUTROPHILS % (AUTO) 53.7 %; PLT - PLATELET COUNT 299 10^3/uL (130-450); RED BLOOD COUNT 4.76 10^6/uL (4.20-5.40); RED CELL DISTRIBUTION WIDTH 13.5 % (12.0-15.0); WHITE BLOOD COUNT 5.6 x10^3/uL (4.8-10.8)
[2019-05-19 00:58] LABS: CALCIUM 9.7 mg/dL (8.5-10.3)
[2019-05-19 02:26] LABS: BILIRUBIN,URINE NEGATIVE (NEGATIVE); GLUCOSE, URINE (UA) 100 mg/dL (NEGATIVE); KETONES,URINE (UA) NEGATIVE (NEGATIVE); LEUKOCYTE ESTERASE, URINE NEGATIVE (NEGATIVE); NITRITE,URINE NEGATIVE (NEGATIVE); OCCULT BLOOD,URINE NEGATIVE (NEGATIVE); PROTEIN,URINE NEGATIVE (NEGATIVE); UROBILINOGEN,URINE 0.2 (NORMAL) E.U./dL (NORMAL)
[2019-05-19] MEDS ORDERED: IOVERSOL 320 100 ML VIAL IVP ONE ×2 (02:26→02:40)
[2019-05-19 02:27] LABS: CLARITY,URINE CLEAR (CLEAR)
--- NOTE | 2019-05-19 02:57 | CT Report ---
Reason: LLQ pain, tenderness Procedure Date: 05/19/2019 Accession Number: [id number] / [id number] Procedure: CT - Abdomen/Pelvis W CPT Code: FULL RESULT: EXAM: CT ABDOMEN AND PELVIS EXAM DATE: 05/19/2019 02:42 AM. CLINICAL HISTORY: LLQ pain, tenderness. COMPARISONS: ABDOMEN/PELVIS W/O 10/22/2017 2:50 PM. TECHNIQUE: Routine helical CT imaging was performed through the abdomen and pelvis. IV contrast: Yes. Enteric contrast: No. Reconstructions: Coronal and sagittal. In accordance with CT protocol optimization, one or more of the following dose reduction techniques were utilized for this exam: automated exposure control, adjustment of mA and/or KV based on patient size, or use of iterative reconstructive technique. FINDINGS: Lung Bases: Unremarkable. Liver: Normal. No masses. Gallbladder/Bile Ducts: Unremarkable. Spleen: Normal. Pancreas: Normal. Adrenal Glands: Normal. Kidneys: Normal. No masses or hydronephrosis. Peritoneal Cavity/Bowel: Normal. No free fluid, free air or adenopathy. No masses or acute inflammatory process. The appendix is well visualized and normal. There are no inflammatory changes of the colon. Pelvic Organs: Normal. The bladder and visualized pelvic organs are within normal limits. Vasculature: No aneurysms or other significant abnormality. Bones: No significant abnormality. Other: None. IMPRESSION: 1. Negative CT scan abdomen and pelvis. [facility]
[2019-05-19 04:41] VITALS: BP 136/68
== END 2019-05-19 04:39 | disposition home or self-care (01) ==
LOC: ED 23:17
DX: M54.5 Low back pain (principal); R10.32 Left lower quadrant pain; W06.XXXA Fall from bed, initial encounter; Y92.003 Bedroom of unspecified non-institutional (private) residence as the place of occurrence of the external cause; I10 Essential (primary) hypertension
CPT/HCPCS: 36415; 74177; 80048; 81003; 85025; 99282; 99284; Q9967; 81001; 87086

== ENCOUNTER 2022-10-07 02:24 | Emergency (ER) | payer MEDICARE, OTHER ==
[2022-10-07 02:58] VITALS: BP 175/111
[2022-10-07] MEDS ORDERED: lisinopriL 5 MG TABLET PO STA (03:08)
--- NOTE | 2022-10-07 03:12 | ED Physician Documentation ---
History of Present Illness - Stated complaint Stated Complaint: HIGH BP - Chief complaint Chief Complaint: General - History obtained from History obtained from: Patient - Additonal information Additional information: The patient comes to the emergency department chief complaint of high blood pressure. She states that she was getting ready for bed when she noticed that she had a funny feeling in both of her wrists and felt almost little tingle in her fingers. She states that she became worried that she might be having a stroke and so she took her blood pressure and found that it was 199/100. The patient began to become concerned and feel a bit panicky and every time she took her to blood pressure, her top number was high and her bottom number was over 100, she states,. The patient denies any shortness of breath or chest pain. She denies any nausea or vomiting. No sweating or lightheadedness. The patient states that she was formerly on a beta-ori for her blood pressure but her d octor took her off of it because her heart rate is low. The patient states she was never put back on anything and most of the time, she feels as though her blood pressure has been running okay. She does not see her doctor again until next month. PD PAST MEDICAL HISTORY - Past Medical History Cardiovascular: Hypertension, High cholesterol Endocrine/Autoimmune: None - Past Surgical History Past Surgical History: Yes - Present Medications Home Medications: Ambulatory Orders Medication Instructions Recorded Confirmed Simvastatin [Zocor] 20 mg PO QPM 01/13/13 10/07/22 Lisinopril [Zestril] 10 mg PO DAILY #30 tablet 10/07/22 - Allergies Allergies/Adverse Reactions: Allergies Allergy/AdvReac Type Severity Reaction Status Date / Time codeine [Codeine] Allergy Intermediate Hives Verified 05/18/19 23:21 diphenhydramine Allergy Respiratory Verified 05/18/19 23:21 [From Benadryl] - Social History Does the pt smoke?: No Smoking Status: Never smoker Does the pt drink ETOH?: No Does the pt have substance abuse?: No - Immunizations Immunizations are current?: Yes - POLST Patient has POLST: No PD ED PE NORMAL - Vitals Vital signs reviewed: Yes - General General: Alert and oriented X 3, No acute distress, Well developed/nourished - HEENT HEENT: Atraumatic, PERRL, EOMI, Moist mucous membranes - Neck Neck: Supple, no meningeal sign - Cardiac Cardiac: RRR, No murmur, Strong equal pulses - Respiratory Respiratory: No respiratory distress, Clear bilaterally - Abdomen Abdomen: Soft, Non tender, Non distended - Derm Derm: Normal color, Warm and dry, No rash - Extremities Extremities: No deformity, No edema, No calf tenderness / cord - Neuro Neuro: Alert and oriented X 3, nursing resident 2-12 intact, No motor deficit, No sensory deficit, Normal speech - Psych Psych: Normal mood, Normal affect Results - Vitals Vitals: Vital Signs - 24 hr 10/07/22 10/07/22 10/07/22 02:30 02:36 03:01 Temperature 36.5 C Heart Rate 63 55 L Respiratory 18 16 Rate Blood Pressure 153/104 H 175/111 H 175/111 H O2 Saturation 96 99 Oxygen O2 Source Room air PD Medical Decision Making - ED course Complexity details: reviewed results, re-evaluated patient, considered differential, d/w patient ED course: The patient was very well-appearing in the emergency department, and did not have any symptoms of end-organ damage. Her blood pressure was elevated, though it did begin to come down during our conversation to 160/100. I discussed with the patient that until she sees her doctor next month, [place] not be a bad idea to be on a antihypertensive that will not affect her heart rate. The patient is agreeable and I gave her dose of lisinopril and a prescription for the same. We have discussed that it would probably be helpful to follow-up with her doctor little sooner than a month from now, and she will attempt to get a sooner appointment, she states. We have discussed symptoms of hypertensive emergency and the usual indications for follow-up and return. Departure - Departure Disposition: Home, Self Care Clinical Impression: Uncontrolled hypertension Condition: Stable Instructions: ED HTN Established Prescriptions: Lisinopril [Zestril] 10 mg PO DAILY #30 tablet Comments: You have been started on a low-dose of a blood pressure medicine in the emergency department today. A prescription for the same has been electronically transmitted to the [facility] pharmacy in [place] at your request. There is no evidence of a stroke or heart attack today. Please follow-up with your primary doctor as soon as possible to discuss what he or she would like you to be on for your blood pressure. In the meantime, you may take the medication that has been prescribed for you today. Discharge Date/Time: 10/07/22 03:23
== END 2022-10-07 03:23 | disposition home or self-care (01) ==
LOC: ED 02:24
DX: I10 Essential (primary) hypertension (principal)
CPT/HCPCS: 99282; 99283; A9270